=== PATIENT | female | born 1960 | race African-American/Black ===

== ENCOUNTER 2022-01-07 12:32 | Emergency (ER) | payer OTHER ==
[~2022-01-07] VITALS: Ht 167.6 cm; Wt 79.4 kg
[2022-01-07] MEDS ORDERED: MECLIZINE HCL 25 MG TABLET PO ONE ×2 (12:45→14:15)
[2022-01-07] MEDS ORDERED: IV NORMAL SALINE 500 ML BAG IV ONE (12:45)
--- NOTE | 2022-01-07 12:45 | NUR ---
Pt taken to CT.
[2022-01-07] MEDS ORDERED: CHOL10005 PO (12:51)
[2022-01-07] MEDS ORDERED: BENA20TA9 PO (12:51)
[2022-01-07] MEDS ORDERED: MVI (12:51)
[2022-01-07] MEDS ORDERED: UBID100C13 PO (12:51)
[2022-01-07] MEDS ORDERED: HYDR12.55 PO (12:51)
[2022-01-07] MEDS ORDERED: ATEN25TA PO (12:51)
[2022-01-07] MEDS ORDERED: OMEG1CAP18 PO (12:51)
[2022-01-07] MEDS ORDERED: ASPI-869 PO (12:51)
[2022-01-07] MEDS ORDERED: MECLIZINE HCL 25 MG TABLET ONE ×2 (13:00→14:38)
[2022-01-07] MEDS ORDERED: DIAZEPAM 2 MG TABLET PO ONE (13:00)
[2022-01-07] MEDS ORDERED: DIAZEPAM 2 MG TABLET ONE (13:01)
[2022-01-07 13:24] LABS: MEAN CORPUSCULAR HEMOGLOBIN 30.6 uug (24.7-32.8); MEAN CORPUSCULAR VOLUME 91.3 fL (75.5-95.3); PLATELET COUNT (AUTO) 220 K/uL (179-408)
[2022-01-07 13:31] LABS: CREATININE 0.9 mg/dL (0.6-1.3); POTASSIUM 3.4 mmol/L (3.5-5.1)
[2022-01-07] MEDS ORDERED: ONDA4TAB11 PO (14:09)
[2022-01-07] MEDS ORDERED: DIAZ2TAB PO (14:09)
[2022-01-07] MEDS ORDERED: MECL-159 PO (14:09)
[2022-01-07] MEDS ORDERED: ONDANSETRON ODT 4 MG TAB.RAPDIS ONE (14:38)
[2022-01-07] MEDS ORDERED: ONDANSETRON 4 MG/2 ML VIAL IV ONE (14:45)
[2022-01-07] MEDS ORDERED: ONDANSETRON ODT 4 MG TAB.RAPDIS SL ONE (14:45)
--- NOTE | 2022-01-07 14:55 | NUR ---
Appears as if IV infiltrated, pt got about 150ml MD FELISHA informed.
--- NOTE | 2022-01-07 15:35 | NUR ---
Pt feeling better now, spinning slowed and nausea gone. Removed IV intact, site okay, bandaged. Gave pt RX and d/c instructions, pt verbalized understanding.
[2022-01-07 15:48] VITALS: BP 144/91
== END 2022-01-07 15:50 | disposition home or self-care (01) ==
LOC: ER 12:32
DX: R42 Dizziness and giddiness (principal); I10 Essential (primary) hypertension; R73.03 Prediabetes; Z85.41 Personal history of malignant neoplasm of cervix uteri; Z88.0 Allergy status to penicillin; Z95.5 Presence of coronary angioplasty implant and graft; Z79.82 Long term (current) use of aspirin; Z79.899 Other long term (current) drug therapy; R00.1 Bradycardia, unspecified; Z86.69 Personal history of other diseases of the nervous system and sense organs
CPT/HCPCS: 99285; 96360; 70450; 96361; 80048; 85025; 36415; 93005; J7040; A4663; J8597; Q0162